=== PATIENT | female | born 1985 | race Caucasian/White ===

== ENCOUNTER 2022-01-09 15:46 | Emergency (ER) | payer SELFPAY ==
[2022-01-09 16:25] VITALS: BMI 28.8
--- NOTE | 2022-01-09 16:56 | W.ED.EXTPRO ---
HPI - Extremity Problem General: Chief complaint: Extremity Injury, Upper Stated complaint: right wrist pain Time Seen by Provider: 01/09/22 16:56 History of Present Illness: Ms. Haddad is a 36-year-old lady without significant medical or surgical history presents to the emergency department due to wrist injury. She reportedly has been at her baseline health and fell from horse primarily catching herself with her right outstretched hand. Immediately had pain. Was seen and evaluated at outside clinic where an x-ray was performed at referred to the emergency department for further evaluation and possible closed reduction. Moderate to severe intensity pain worse with palpation and movement. Patient presents in a limited splint. No other specific changes in health, exacerbating, or alleviating factors identified. Onset (ago): hour(s) Pain Consistency: constant Quality: aching, sharp and dull Exacerbating factors: range of motion and palpation Associated symptoms: Reports no associated symptoms Review of Systems General: Reports: 10 or more systems reviewed and unremarkable except in HPI and below PFSH ED PFSH: Medical History (Updated 01/23/22 @ 01:58 by Gagan Paez MD) No significant past medical history Surgical History (Updated 01/23/22 @ 01:58 by Gagan Paez MD) No significant past surgical history Social History Smoking and tobacco status: never smoked Female Reproductive History: Date of last menstrual period: 12/09/21 Physical Exam Const: COMMON NORMALS: alert GENERAL APPEARANCE: cooperative and well developed HENMT: COMMON NORMALS: normocephalic and atraumatic HEAD & SCALP: normocephalic and atraumatic Eye: COMMON NORMALS: conjunctivae normal CONJUNCTIVA: Yes conjunctivae normal SCLERA: sclerae normal Neck/C-Spine: COMMON NORMALS: supple GENERAL: Yes trachea midline Resp: COMMON NORMALS: normal respiratory effort EFFORT & INSPECTION: Yes able to speak in complete sentences Cardio: COMMON NORMALS: regular rate and regular rhythm RATE: regular rate RHYTHM: regular rhythm GI: COMMON NORMALS: Soft to palpation PALPATION: Yes Soft to palpation and No Tenderness to palpation present (GI) PERCUSSION: normal to percussion Extremity: NARRATIVE EXTREMITY EXAM: Presents in soft foam splint. CMS intact. No evidence of open fracture. GENERAL: Yes normal exam except as noted and No edema Neuro: COMMON NORMALS: moves all extremities SENSORIUM/ORIENTATION: Yes alert and No Orientation impaired Psych: COMMON NORMALS: mental status grossly normal and Normal thought process present THOUGHT PROCESS: Normal thought process present Course Vital Signs: Vital signs: Vital Signs Respiratory Rate 18 01/09/22 18:38 Oxygen Delivery Me thod 01/09/22 16:25 MDM - Extremity (Nontraumatic) Medical Decision Making 36-year-old presenting after being thrown from horse. No evidence of additional injury on head to toe exam other than known isolated forearm injury. Apparently referred here for concern over needing reduction however upon review of x-rays alignment there is anatomic without need for reduction. Patient placed in sugar-tong splint and sling, post splinting CMS exam unchanged. The results of ED evaluation were discussed with the patient including prescriptions and/or symptomatic cares (if applicable) including appropriate and responsible use, followup plan, and return precautions. The patient verbalized understanding and felt safe for discharge. Plan to follow-up with orthopedics. Medical Records I reviewed the patient's medical records. Lab Data I reviewed the patient's lab results. Radiology Impressions Wrist X-Ray 01/09/22 17:04 IMPRESSION: 1. Distal radial impacted fracture with articular involvement at the radiocarpal joint again seen. 2. Mildly displaced ulnar styloid process fracture. 3. Lateral view demonstrates a small bony fragment over the dorsum of the mid carpal row suggestive of a small triquetral fracture. Discharge Plan Discharge Patient Disposition: Home Clinical Impression: Distal radial fracture, Fracture of right ulnar styloid, Fracture of triquetral bone of right wrist Condition: Stable Prescriptions: New ondansetron 4 mg tablet,disintegrating 4 mg PO Q8H PRN (Reason: nausea and vomiting) Qty: 15 0RF oxycodone 5 mg tablet 5 mg PO Q4H PRN (Reason: pain) Qty: 30 0RF No Action (DME) Fast Form Brace See Rx Instructions .Route .MEDSUPPLY Qty: 1 0RF Rx Instructions: As directed Discharge Orders: Discharge ED (Routine); Ordered 01/09/22 Ordered By: Gagan Paez Discharge Diet: Usual diet Discharge Activity: Limit activity as instructed Patient Instructions: Wrist Fracture in Adults (ED), Splint Care (ED), Opioid Safety Activity Restrictions/Additional Instructions: Thank you for visiting the emergency department. You were seen evaluated for fall from horse with previously diagnosed wrist injury. You were found to have a intra-articular distal radius fracture along with an ulnar styloid fracture and possible triquetral fracture. I will message case management for follow-up with orthopedics. Please call if you do not hear from case management by Wednesday afternoon. I will prescribe oxycodone, this is an opioid as discussed and does have risks. You should also use elevation, Tylenol, ibuprofen for symptom treatment. Return to the emergency department for worsening symptoms, uncontrolled pain, any sensory or motor changes or color changes in the fingers or hand, or anything else that you are concerned about a feel needs emergency department evaluation. Coding Level of Care Code ED Cat Wagon Operator for Fannie Oden
--- NOTE | 2022-01-09 17:04 | XRR_ITS ---
PROCEDURE INFORMATION: Exam: XR Right Wrist Exam date and time: 01/09/2022 5:36 PM Age: 36 years old Clinical indication: Injury or trauma; Fall; Blunt trauma (contusions or hematomas); Wrist; Right; Additional info: Fall from horse TECHNIQUE: Imaging protocol: Radiologic exam of the Right wrist. Views: 3 or more views. COMPARISON: DX XR wrist RT min 3V* [id number] 01/09/2022 2:15 PM FINDINGS: Bones/joints: Distal radial impacted fracture with articular involvement at the radiocarpal joint again seen. Mildly displaced ulnar styloid process fracture. Lateral view demonstrates a small bony fragment over the dorsum of the mid carpal row suggestive of a small triquetral fracture. Soft tissues: Normal. XR/XR wrist RT min 3V* [id number] IMPRESSION: 1. Distal radial impacted fracture with articular involvement at the radiocarpal joint again seen. 2. Mildly displaced ulnar styloid process fracture. 3. Lateral view demonstrates a small bony fragment over the dorsum of the mid carpal row suggestive of a small triquetral fracture.
[2022-01-09 17:15] VITALS: RESP 16
[2022-01-09] MEDS: morphine 4 mg/mL SDV 1 mL IVP (17:15)
[2022-01-09 18:38] VITALS: RESP 18
[2022-01-09] MEDS: oxyCODONE 5 mg IR Tab/Cap 20 MG PO (18:38)
--- NOTE | 2022-01-12 12:22 | DCPLANNER ---
Addendum entered by Pita Alvarez 01/14/22 08:44: Patient had a follow up appointment scheduled for 01.12.[address] Thompson at ortho - patient did attend appointment. Original Note: aquaculture farm manager had message to schedule a follow up appointment for patient with ortho. aquaculture farm manager sent patients information to the front office staff at ortho. Patients information will be printed and reviewed. Clinic will call patient with appointment information.
== END 2022-01-09 18:50 | disposition home or self-care (01) ==
PROVIDERS: Emergency Provider Emergency Medicine
DX: S52.501A Unspecified fracture of the lower end of right radius, initial encounter for closed fracture (principal); S52.611A Displaced fracture of right ulna styloid process, initial encounter for closed fracture; S62.111A Displaced fracture of triquetrum [cuneiform] bone, right wrist, initial encounter for closed fracture; V80.010A Animal-rider injured by fall from or being thrown from horse in noncollision accident, initial encounter
CPT/HCPCS: 29125; 73110; 96374; 99284; J2270

== ENCOUNTER 2022-01-12 16:32 | Outpatient (CLI) | payer SELFPAY | END 2022-01-12 16:33 | disposition home or self-care (01) | LOC: SPT 16:33 | PROVIDERS: Visit Provider Specialist | DX: S62.111D Displaced fracture of triquetrum [cuneiform] bone, right wrist, subsequent encounter for fracture with routine healing (principal); S52.501D Unspecified fracture of the lower end of right radius, subsequent encounter for closed fracture with routine healing; S52.601D Unspecified fracture of lower end of right ulna, subsequent encounter for closed fracture with routine healing; X58.XXXD Exposure to other specified factors, subsequent encounter | CPT/HCPCS: 97760; L3982 ==

== ENCOUNTER → 2022-01-28 13:45 | Outpatient (BNVA) | payer SELFPAY | PROVIDERS: Visit Provider Specialist | DX: S62.111A Displaced fracture of triquetrum [cuneiform] bone, right wrist, initial encounter for closed fracture (principal); V80.010A Animal-rider injured by fall from or being thrown from horse in noncollision accident, initial encounter; S52.501A Unspecified fracture of the lower end of right radius, initial encounter for closed fracture; S52.601A Unspecified fracture of lower end of right ulna, initial encounter for closed fracture | CPT/HCPCS: 73110 ==

== ENCOUNTER → 2022-02-18 13:52 | Outpatient (BNVA) | payer SELFPAY | PROVIDERS: Visit Provider Specialist | DX: S52.501D Unspecified fracture of the lower end of right radius, subsequent encounter for closed fracture with routine healing (principal); S52.601D Unspecified fracture of lower end of right ulna, subsequent encounter for closed fracture with routine healing; S62.114D Nondisplaced fracture of triquetrum [cuneiform] bone, right wrist, subsequent encounter for fracture with routine healing; X58.XXXD Exposure to other specified factors, subsequent encounter | CPT/HCPCS: 73110 ==